=== PATIENT | female | born 1935 | race African-American/Black ===

== ENCOUNTER 2017-05-27 10:52 | Inpatient (IN) | payer MEDICAID, MEDICARE ==
[~2017-05-27] VITALS: Ht 167.6 cm; Wt 56.7 kg
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
--- NOTE | 2017-05-27 11:09 | NUR ---
REPORT GIVEN TO LUPILLO NASCIMENTO FOR BRADLEY
--- NOTE | 2017-05-27 11:23 | NUR ---
pt transferred to floor in stable condition
[2017-05-27 11:30] VITALS: BP 143/65
--- NOTE | 2017-05-27 11:30 | NUR ---
PARCEL POST CARRIER PATIENT RECEIVED FROM E.R. DEPT, A/OX1, CONFUSED, GARBLED SPEECH, BREATHING EVEN AND UNLABORED, NO SOB NOTED, SKIN ASSESSMENT COMPLETED, SKIN DRY AND INTACT, NO WOUNDS NOTED, BED BATH AND SKIN CARE PROVIDED, DR. BRAGG SEEN AND EXAMINED PATIENT, INSTRUCTED TO PUT O2 INHALATION. AWAITING FOR DR. BRAGG'S ADMISSION ORDERS. SAFETY MEASURES IN PLACED, CALL LIGHT WITHIN REACH, BED ALARM ON, WILL CONTINUE TO MONITOR.
[2017-05-27] MEDS ORDERED: ONDANSETRON HCL/PF 4 MG/2 ML VIAL IVP PRN (13:00)
[2017-05-27] MEDS ORDERED: Z GUARD REMEDY 2 OZ OINT TP PRN (13:00)
[2017-05-27] MEDS ORDERED: ZOLPIDEM TARTRATE 5 MG TABLET PO PRN (13:00)
[2017-05-27] MEDS ORDERED: ACETAMINOPHEN 325 MG TABLET PO PRN (13:00)
[2017-05-27] MEDS ORDERED: MAG HYDROX/AL HYDROX/SIMETH 30 ML UDC PO PRN (13:00)
[2017-05-27] MEDS ORDERED: MAGNESIUM HYDROXIDE 30 ML UDC PO PRN (13:00)
[2017-05-27] MEDS: IV NS 0.9% 1,000 ML IV PRN (15:41)
[2017-05-27 16:00] VITALS: BP 159/85
[2017-05-27] MEDS ORDERED: MAGN400O6 PO (17:24)
[2017-05-27] MEDS ORDERED: ASCO500T9 PO (17:24)
[2017-05-27] MEDS ORDERED: PANT40TA2 PO (17:24)
[2017-05-27] MEDS ORDERED: SENN-18 PO (17:24)
[2017-05-27] MEDS ORDERED: AMLO10TA2 PO (17:24)
[2017-05-27] MEDS ORDERED: HYDR-552 PO ×2 (17:24)
[2017-05-27] MEDS ORDERED: LATA2.5D7 EACHEYE (17:24)
[2017-05-27] MEDS ORDERED: DEXT1CAP3 PO (17:24)
[2017-05-27] MEDS ORDERED: LEVE100S PO (17:24)
[2017-05-27] MEDS ORDERED: INSU100V27 SQ (17:24)
[2017-05-27] MEDS ORDERED: HYDR100T27 PO (17:24)
[2017-05-27] MEDS ORDERED: INSU100V10 SQ (17:24)
[2017-05-27] MEDS ORDERED: ACET-868 PO (17:24)
[2017-05-27] MEDS ORDERED: FERR-58 PO (17:24)
[2017-05-27] MEDS ORDERED: CLON0.1T PO (17:24)
[2017-05-27] MEDS ORDERED: CARV25TA2 PO (17:24)
[2017-05-27] MEDS ORDERED: AMIN30LI2 PO (17:24)
[2017-05-27] MEDS ORDERED: DORZ10DR13 LEFTEYE (17:24)
[2017-05-27] MEDS ORDERED: MULT-213 PO (17:24)
[2017-05-27] MEDS ORDERED: LORA-259 PO (17:24)
[2017-05-27] MEDS ORDERED: CHOL200026 PO (17:24)
[2017-05-27] MEDS ORDERED: CLON0.3P TD (17:24)
[2017-05-27] MEDS ORDERED: DOCU-275 PO (17:24)
[2017-05-27] MEDS ORDERED: HYDROCODONE/APAP 5/325MG 1 EACH TABLET PO PRN (18:00)
[2017-05-27] MEDS: HYDROCODONE/APAP 5/325MG 1 EACH TABLET PO PRN (18:09)
--- NOTE | 2017-05-27 19:45 | NUR ---
RN OPENING NOTES RECEIVED REPORT FROM DAYSHIFT RN. FOUND Pt AWAKE, RESTING IN BED, FAMILY MEMBER VISITING AT BEDSIDE. NO S/S OF ACUTE DISTRESS OR SOB NOTED. RESPIRATIONS EVEN AND UNLABORED. EQUAL CHEST RISE AND FALL. Pt IS A/OX1, CONFUSED. ON [facility] SOFT DIET. IV ACCESS ON RWRIST #20G, IVF NS @75ML/HR. SAFETY MEASURES IN PLACE. BED LOW, LOCKED, HOB ELEVATED, SIDE RAILS UP, CALL LIGHT AND BEDSIDE TABLE WITHIN REACH. WILL CONTINUE TO MONITOR Pt THROUGHOUT THE NIGHT FOR SAFETY.
[2017-05-27 20:00] VITALS: BP 141/66
[2017-05-28] MEDS ORDERED: hydrALAZINE HCL 25 MG TABLET PO PRN (03:00)
[2017-05-28] MEDS: IV NS 0.9% 1,000 ML IV PRN (06:23)
--- NOTE | 2017-05-28 06:50 | NUR ---
RN CLOSING NOTES NO SIGNIFICANT CHANGES IN Pt's CONDITION. Pt REMAINS STABLE AT THIS TIME. NO S/S OF ACUTE DISTRESS OR SOB NOTED DURING THE NIGHT. ALL NEEDS MET AND ATTENDED TO. SAFETY MEASURES IN PLACE. WILL ENDORSE TO DAYSHIFT RN FOR Pt's BRADLEY.
--- NOTE | 2017-05-28 07:20 | NUR ---
RECEIVED REPORT AT THE BEDSIDE. PATIENT IS RESTING COMFORTABLY IN BED. NO SOB OR DISTRESS NOTED. PATIENT DENIES PAIN. BED IN A LOW POSITION, CALL LIGHT WITHIN PATIENT REACH. WILL CONTINUE TO MONITOR. Addendum: 05/28/17 at 0756 by DARLENE BELCHER RN PT NEEDS MED REC. WILL INFORM MD WHEN ABLE.
[2017-05-28 07:37] LABS: BASOPHILS % (AUTO) 0.7 % (0.0-2.0); EOSINOPHILS # (AUTO) 0.1 /CMM (0.0-0.7); EOSINOPHILS % (AUTO) 2.4 % (0.0-6.0); HEMATOCRIT 26 % (33-45); HEMOGLOBIN 8.3 g/dL (11.5-14.8); LYMPHOCYTES # (AUTO) 2.1 /CMM (0.8-4.8); LYMPHOCYTES % (AUTO) 44.4 % (20.0-44.0); MEAN CORPUSCULAR HEMOGLOBIN 29 PG (26.0-33.0); MEAN CORPUSCULAR HGB CONC 33 g/dl (31.0-36.0); MEAN CORPUSCULAR VOLUME 90 fL (82-100); MONOCYTES # (AUTO) 0.5 /CMM (0.1-1.30); MONOCYTES % (AUTO) 9.7 % (2.0-12.0); NEUTROPHILS # (AUTO) 2.1 /CMM (1.8-8.9); NEUTROPHILS % (AUTO) 42.8 % (43.0-81.0); PLATELET COUNT (AUTO) 202 /CMM (150-450); RDW COEFFICIENT OF VARIATION 13.9 (11.5-15.0); RED BLOOD CELL COUNT(AUTO) 2.84 MIL/uL (4.0-5.2); WHITE BLOOD COUNT (AUTO) 4.8 K/uL (4.3-11.0)
[2017-05-28 07:42] LABS: INR 0.98 (0.87-1.13); PROTHROMBIN TIME 10.2 SECS (9.5-12.7)
[2017-05-28 07:47] LABS: RETICULOCYTE COUNT 0.8 % (0.6-2.5)
[2017-05-28 07:54] LABS: ALANINE AMINOTRANSFERASE 39 U/L (12-78); ALBUMIN 2.5 g/dL (3.4-5.0); ALKALINE PHOSPHATASE 90 U/L (46-116); AMYLASE 136 U/L (25-115); ASPARTATE AMINOTRANSFERASE 23 U/L (15-37); BILIRUBIN,TOTAL 0.2 mg/dL (0.2-1.0); CALCIUM, SERUM 8.8 mg/dL (8.5-10.1); CARBON DIOXIDE 18 mmol/L (21-32); CHLORIDE 118 mmol/L (98-107); GLUCOSE 92 mg/dL (74-106); LIPASE 205 U/L (73-393); MAGNESIUM 2.2 mg/dL (1.8-2.4); PHOSPHORUS 3.6 mg/dL (2.5-4.9); POTASSIUM 4.7 mmol/L (3.5-5.1); SODIUM SERUM 147 mmol/L (136-145); TOTAL PROTEIN, SERUM 6.4 g/dL (6.4-8.2); UREA NITROGEN, BLOOD 36 mg/dL (7-18)
[2017-05-28 08:00] VITALS: BP 147/67
[2017-05-28 08:09] LABS: CHOLESTEROL 164 mg/dL (<200); CREATINE KINASE MB 0.4 ng/mL (0-3.6); HDL CHOLESTEROL 33 mg/dL (40-60); LDL 99 mg/dL (0-99); THYROID STIMULATING HORMONE 1.113 uIU/mL (0.358-3.74); TRIGLYCERIDES 119 mg/dL (30-150)
[2017-05-28] MEDS: ENOXAPARIN SODIUM 30 MG/0.3 ML DISP.SYRIN SQ SCH (08:15)
[2017-05-28 08:19] LABS: IRON, SERUM 60 ug/dl (50-175); TOTAL IRON BINDING CAPACITY 150 ug/dl (250-450)
[2017-05-28] MEDS ORDERED: HYDROCODONE/APAP 5/325MG 1 EACH TABLET PO SCH ×2 (11:30→12:00)
[2017-05-28] MEDS ORDERED: MAGNESIUM HYDROXIDE 30 ML UDC PO PRN (11:30)
[2017-05-28] MEDS ORDERED: ACETAMINOPHEN 325 MG TABLET PO PRN (11:30)
[2017-05-28] MEDS ORDERED: HOME MED MISCELLANEOUS XX SCH (11:30)
[2017-05-28] MEDS ORDERED: CLONIDINE HCL 0.1 MG TABLET PO PRN (11:30)
[2017-05-28] MEDS: BLOOD SUGAR DIAGNOSTIC 1 EACH STRIP IN SCH ×3 (12:26→21:15)
[2017-05-28] MEDS: hydrALAZINE HCL 50 MG TABLET PO SCH ×2 (12:26→17:43)
[2017-05-28] MEDS: IV 1/2NS 1000 ML 1,000 ML IV PRN (12:26)
[2017-05-28] MEDS: FERROUS SULFATE (325 MG) 325 MG/TAB TABLET PO SCH ×2 (12:26→17:43)
[2017-05-28] MEDS: INSULIN ASPART HUMALOG/NOVOLOG 100 UNIT/ML CARTRIDGE SQ PRN ×3 (12:30→21:17)
[2017-05-28 16:00] VITALS: BP 150/84
[2017-05-28] MEDS: PROSOURCE / PROSTAT (PYXIS) 30 ML UDC PO SCH (17:00)
[2017-05-28] MEDS: LORAZEPAM 1 MG TABLET PO SCH (17:43)
[2017-05-28] MEDS: DOCUSATE SODIUM 100 MG CAPSULE PO SCH (17:43)
[2017-05-28] MEDS: TIMOLOL MAL/DORZOLAM HCL OPHTH 10 ML BOTTLE LEFTEYE SCH (17:45)
[2017-05-28] MEDS: HYDROCODONE/APAP 5/325MG 1 EACH TABLET PO PRN (18:49)
[2017-05-28 20:00] VITALS: BP 167/89
[2017-05-28 20:17] LABS: APPEARANCE,URINE CLEAR (CLEAR); BILIRUBIN,URINE NEGATIVE (NEGATIVE); BLOOD, URINE NEGATIVE Ery/uL (NEGATIVE); COLOR,URINE YELLOW (YELLOW); KETONES,URINE NEGATIVE (NEGATIVE); LEUKOCYTE ESTERASE ,URINE TRACE (NEGATIVE); NITRITE, URINE NEGATIVE (NEGATIVE); PH,URINE 5.5 (5.0-8.0); PROTEIN,URINE 2+ mg/dl (NEGATIVE); UGLUCOSE NEGATIVE (NEGATIVE); UROBILINOGEN,URINE 0.2 EU/dL (0.2)
[2017-05-28] MEDS: SENNOSIDES 8.6 MG TABLET PO SCH (20:54)
[2017-05-28] MEDS: LEVETIRACETAM SOL (5 ML) 100 MG/ML UDC PO SCH (20:55)
[2017-05-28] MEDS: CARVEDILOL 12.5 MG TABLET PO SCH (20:55)
[2017-05-28 21:08] LABS: BACTERIA,URINE Many /HPF (None Seen); RBC,URINE 0-2 /HPF (0-2); SQUAMOUS EPITHELIAL CELL,UR Few /HPF (None Seen)
[2017-05-28] MEDS: INSULIN DETEMIR 100 UNIT/ML CARTRIDGE SQ SCH (21:16)
[2017-05-28] MEDS: LATANOPROST EYE DROP 0.005% 2.5 ML BOTTLE EACHEYE SCH (22:12)
[2017-05-29] MEDS: IV 1/2NS 1000 ML 1,000 ML IV PRN ×2 (00:25→13:17)
[2017-05-29] MEDS: HYDROCODONE/APAP 5/325MG 1 EACH TABLET PO PRN (05:02)
[2017-05-29] MEDS: DEXTROSE 50%-WATER 50 ML DISP.SYRIN IV PRN (05:45)
--- NOTE | 2017-05-29 06:28 | NUR ---
MS RN NOTES AWAKE & STILL CONFUSED. NOT IN ANY DISTRESS. NO SOB NOTED. DENIES ANY PAIN OR DISCOMFORT AT THIS TIME. WITH IVF INFUSING WELL. AM CARE DONE. MONITORED ACCORDINGLY. CALL LIGHT WITHIN REACH. BED IN LOWEST POSITION. SR UP X 3 FOR SAFETY WITH BED ALARM ON. WILL ENDORSE TO NEXT SHIFT.
[2017-05-29] MEDS: BLOOD SUGAR DIAGNOSTIC 1 EACH STRIP IN SCH ×4 (06:47→21:28)
[2017-05-29] MEDS: PANTOPRAZOLE 40 MG TABLET.DR PO SCH (07:53)
[2017-05-29 08:00] VITALS: BP 154/81
[2017-05-29] MEDS: MULTIVIT, IRON, MIN NO. 8, FA 1 TAB PO SCH (08:31)
[2017-05-29] MEDS: LEVETIRACETAM SOL (5 ML) 100 MG/ML UDC PO SCH ×3 (08:31→21:06)
[2017-05-29] MEDS: DOCUSATE SODIUM 100 MG CAPSULE PO SCH ×2 (08:31→16:32)
[2017-05-29] MEDS: ASCORBIC ACID 500 MG TABLET PO SCH (08:31)
[2017-05-29] MEDS: FERROUS SULFATE (325 MG) 325 MG/TAB TABLET PO SCH ×3 (08:31→16:32)
[2017-05-29] MEDS: CHOLECALCIFEROL 1,000 UNIT TABLET (VIT D3) PO SCH (08:31)
[2017-05-29] MEDS: hydrALAZINE HCL 50 MG TABLET PO SCH ×3 (08:32→16:32)
[2017-05-29] MEDS: CARVEDILOL 12.5 MG TABLET PO SCH ×3 (08:32→21:07)
[2017-05-29] MEDS: AMLODIPINE BESYLATE 10 MG TABLET PO SCH (08:33)
[2017-05-29] MEDS: TIMOLOL MAL/DORZOLAM HCL OPHTH 10 ML BOTTLE LEFTEYE SCH ×2 (08:34→16:33)
[2017-05-29] MEDS: ENOXAPARIN SODIUM 30 MG/0.3 ML DISP.SYRIN SQ SCH (08:36)
[2017-05-29] MEDS: SENNOSIDES 8.6 MG TABLET PO SCH ×3 (08:37→21:06)
[2017-05-29] MEDS: PROSOURCE / PROSTAT (PYXIS) 30 ML UDC PO SCH ×2 (08:38→16:32)
[2017-05-29] MEDS: LORAZEPAM 1 MG TABLET PO SCH ×2 (08:38→16:32)
[2017-05-29] MEDS ORDERED: CLONIDINE HCL 0.3 MG/24H PTWK 1 EA PATCH TD SCH (09:00)
[2017-05-29] MEDS: LEVOFLOXACIN (250MG) 250 MG TABLET PO SCH (10:27)
[2017-05-29 12:04] LABS: BASOPHILS % (AUTO) 0.3 % (0.0-2.0); EOSINOPHILS # (AUTO) 0.1 /CMM (0.0-0.7); HEMATOCRIT 31 % (33-45); HEMOGLOBIN 9.8 g/dL (11.5-14.8); LYMPHOCYTES # (AUTO) 1.8 /CMM (0.8-4.8); LYMPHOCYTES % (AUTO) 24.2 % (20.0-44.0); MEAN CORPUSCULAR HEMOGLOBIN 29 PG (26.0-33.0); MEAN CORPUSCULAR HGB CONC 32 g/dl (31.0-36.0); MEAN CORPUSCULAR VOLUME 90 fL (82-100); MONOCYTES # (AUTO) 0.3 /CMM (0.1-1.30); MONOCYTES % (AUTO) 3.9 % (2.0-12.0); NEUTROPHILS # (AUTO) 5.1 /CMM (1.8-8.9); NEUTROPHILS % (AUTO) 69.6 % (43.0-81.0); PLATELET COUNT (AUTO) 222 /CMM (150-450); RED BLOOD CELL COUNT(AUTO) 3.41 MIL/uL (4.0-5.2); WHITE BLOOD COUNT (AUTO) 7.3 K/uL (4.3-11.0)
[2017-05-29 12:14] LABS: CALCIUM, SERUM 8.7 mg/dL (8.5-10.1); CARBON DIOXIDE 20 mmol/L (21-32); CHLORIDE 108 mmol/L (98-107); CREATININE 1.6 mg/dL (0.6-1.3); GLUCOSE 150 mg/dL (74-106); POTASSIUM 4.3 mmol/L (3.5-5.1); SODIUM SERUM 138 mmol/L (136-145); UREA NITROGEN, BLOOD 26 mg/dL (7-18)
[2017-05-29] MEDS: INSULIN ASPART HUMALOG/NOVOLOG 100 UNIT/ML CARTRIDGE SQ PRN ×3 (13:02→21:29)
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
[2017-05-29 20:00] VITALS: BP 129/62
[2017-05-29] MEDS: LATANOPROST EYE DROP 0.005% 2.5 ML BOTTLE EACHEYE SCH (21:30)
[2017-05-29] MEDS: INSULIN DETEMIR 100 UNIT/ML CARTRIDGE SQ SCH (21:30)
[2017-05-30] MEDS: IV 1/2NS 1000 ML 1,000 ML IV PRN ×2 (01:56→15:44)
[2017-05-30] MEDS: BLOOD SUGAR DIAGNOSTIC 1 EACH STRIP IN SCH ×4 (06:12→21:49)
--- NOTE | 2017-05-30 07:30 | NUR ---
MS/RN Patient received Patient received from shift production supervisor Appears in no distress or discomfort at this time. Call ligth within reach, will continue to monitor and ensure safety.
[2017-05-30 08:00] VITALS: BP 126/61
[2017-05-30] MEDS: PANTOPRAZOLE 40 MG TABLET.DR PO SCH (08:12)
[2017-05-30] MEDS: FERROUS SULFATE (325 MG) 325 MG/TAB TABLET PO SCH ×3 (08:13→17:31)
[2017-05-30] MEDS: TIMOLOL MAL/DORZOLAM HCL OPHTH 10 ML BOTTLE LEFTEYE SCH ×2 (08:13→17:31)
[2017-05-30] MEDS: SENNOSIDES 8.6 MG TABLET PO SCH ×2 (08:13→21:41)
[2017-05-30] MEDS: LEVOFLOXACIN (250MG) 250 MG TABLET PO SCH (08:13)
[2017-05-30] MEDS: DOCUSATE SODIUM 100 MG CAPSULE PO SCH ×2 (08:13→17:30)
[2017-05-30] MEDS: MULTIVIT, IRON, MIN NO. 8, FA 1 TAB PO SCH (08:13)
[2017-05-30] MEDS: ASCORBIC ACID 500 MG TABLET PO SCH (08:13)
[2017-05-30] MEDS: CHOLECALCIFEROL 1,000 UNIT TABLET (VIT D3) PO SCH (08:14)
[2017-05-30] MEDS: LORAZEPAM 1 MG TABLET PO SCH ×2 (08:14→17:31)
[2017-05-30] MEDS: LEVETIRACETAM SOL (5 ML) 100 MG/ML UDC PO SCH ×2 (08:14→21:41)
[2017-05-30] MEDS: hydrALAZINE HCL 50 MG TABLET PO SCH ×3 (08:18→17:31)
[2017-05-30] MEDS: AMLODIPINE BESYLATE 10 MG TABLET PO SCH (08:18)
[2017-05-30] MEDS: CARVEDILOL 12.5 MG TABLET PO SCH ×2 (08:18→21:42)
[2017-05-30] MEDS: ENOXAPARIN SODIUM 30 MG/0.3 ML DISP.SYRIN SQ SCH (08:19)
[2017-05-30] MEDS: PROSOURCE / PROSTAT (PYXIS) 30 ML UDC PO SCH ×2 (08:23→17:33)
--- NOTE | 2017-05-30 09:32 | NUR ---
MS/RN Medications Morning medications administered, crushed with apple sauce.
--- NOTE | 2017-05-30 15:11 | NUR ---
MS/RN S/B Dr Dewey Seen by Dr Dewey - awaiting SNF to reopen. Continue with current plan of care.
[2017-05-30 16:00] VITALS: BP 151/97
--- NOTE | 2017-05-30 18:00 | NUR ---
MS/RN Blood sugar Blood sugar at 5p - 122, no coverage needed.
--- NOTE | 2017-05-30 19:23 | NUR ---
RN NOTES IN BED RESTING COMFORTABLY. A/O X 1, PT IN STABLE CONDITION, NO S/S OF DISTRESS. SAFETY MEASURES ARE IN PLACE, CALL LIGHT IS IN REACH. WILL CONTINUE TO MONITOR.
[2017-05-30 20:00] VITALS: BP 140/67
[2017-05-30] MEDS: LATANOPROST EYE DROP 0.005% 2.5 ML BOTTLE EACHEYE SCH (21:41)
[2017-05-30] MEDS: INSULIN DETEMIR 100 UNIT/ML CARTRIDGE SQ SCH (21:49)
[2017-05-30] MEDS: INSULIN ASPART HUMALOG/NOVOLOG 100 UNIT/ML CARTRIDGE SQ PRN (21:50)
--- NOTE | 2017-05-30 22:00 | NUR ---
MS RN NOTES LEVIMIR 18 UNITS DUE AT 2200 REFUSED BY THE PATIENT DESPITE EXPLAINING RISKS AND BENEFITS OFFERED 3 TIMES SHOUTING AND SAID NO, M.D MADE AWARE
[2017-05-31] MEDS: IV 1/2NS 1000 ML 1,000 ML IV PRN ×2 (00:12→15:16)
[2017-05-31] MEDS: BLOOD SUGAR DIAGNOSTIC 1 EACH STRIP IN SCH ×4 (05:52→21:01)
[2017-05-31] MEDS: INSULIN ASPART HUMALOG/NOVOLOG 100 UNIT/ML CARTRIDGE SQ PRN ×4 (05:52→21:07)
--- NOTE | 2017-05-31 06:36 | NUR ---
MS RN CLOSING NOTES ASLEEP AND EASILY AWAKEN, HOB ELEVATED, RESPIRATIONS EVEN AND UNLABORED. 98% R.A IN STABLE CONDITION. NOT IN S/S DISTRESS. KEPT CLEAN AND DRY AND COMFORTABLE, ALL NURSING CARE RENDERED. NEEDS ATTENDED AND ANTICIPATED, FREQUENT VISUAL CHECK DONE FOR SAFETY EVERY 2 HOURS. ASSISTED REPOSITION Q2H. ON LOW BED AT ALL TIMES TO ENSURE SAFETY. SAFE HAZARD FREE ENVIRONMENT PROVIDED. CALL LIGHT WITHIN EASY TO REACH. WILL ENDORSE NEXT SHIFT CONTINUITY OF CARE.
--- NOTE | 2017-05-31 07:30 | NUR ---
MS RN NOTES RECEIVED PATIENT IN BED, AWAKE. A/O X1 WITH CONFUSION, SPEECH GARBLED. IVC IN RFA, IVF 1/2 NS INFUSING AT 80ML/HR, TOLERATING WELL. MADE COMFORTABLE IN BED, SAFETY MEASURES PROVIDED. CALL LIGHT WITHIN REACH, SIDE RAILS UP X2. WILL CONT TO MONITOR.
[2017-05-31 08:00] VITALS: BP 158/77
[2017-05-31] MEDS: LEVETIRACETAM SOL (5 ML) 100 MG/ML UDC PO SCH ×2 (09:19→20:38)
[2017-05-31] MEDS: CHOLECALCIFEROL 1,000 UNIT TABLET (VIT D3) PO SCH (09:20)
[2017-05-31] MEDS: DOCUSATE SODIUM 100 MG CAPSULE PO SCH ×2 (09:20→16:10)
[2017-05-31] MEDS: ASCORBIC ACID 500 MG TABLET PO SCH (09:20)
[2017-05-31] MEDS: FERROUS SULFATE (325 MG) 325 MG/TAB TABLET PO SCH ×3 (09:20→16:10)
[2017-05-31] MEDS: LEVOFLOXACIN (250MG) 250 MG TABLET PO SCH (09:20)
[2017-05-31] MEDS: CARVEDILOL 12.5 MG TABLET PO SCH ×2 (09:20→20:38)
[2017-05-31] MEDS: LORAZEPAM 1 MG TABLET PO SCH ×2 (09:20→16:10)
[2017-05-31] MEDS: TIMOLOL MAL/DORZOLAM HCL OPHTH 10 ML BOTTLE LEFTEYE SCH ×2 (09:21→16:12)
[2017-05-31] MEDS: SENNOSIDES 8.6 MG TABLET PO SCH ×2 (09:23→20:38)
[2017-05-31] MEDS: AMLODIPINE BESYLATE 10 MG TABLET PO SCH (09:23)
[2017-05-31] MEDS: MULTIVIT, IRON, MIN NO. 8, FA 1 TAB PO SCH (09:23)
[2017-05-31] MEDS: PANTOPRAZOLE 40 MG TABLET.DR PO SCH (09:30)
[2017-05-31] MEDS: ENOXAPARIN SODIUM 30 MG/0.3 ML DISP.SYRIN SQ SCH (09:30)
[2017-05-31] MEDS: hydrALAZINE HCL 50 MG TABLET PO SCH ×3 (09:34→16:12)
[2017-05-31] MEDS: PROSOURCE / PROSTAT (PYXIS) 30 ML UDC PO SCH ×2 (09:45→16:09)
[2017-05-31] MEDS: HYDROCODONE/APAP 5/325MG 1 EACH TABLET PO PRN (12:48)
[2017-05-31 16:00] VITALS: BP 132/74
--- NOTE | 2017-05-31 18:35 | NUR ---
MS RN CLOSING NOTES PATIENT IS A/O X1. BLOOD SUGAR MONITORED, ASSISTED WITH FEEDING. REPOSITION Q 2HR WHILE IN BED. MADE COMFORTABLE IN BED, DENIES ANY DISCOMFORT. PLACE CALL LIGHT WITHIN REACH. FOR DC PLANNING, CM IS AWARE. WILL ENDORSE TO DRIER FEEDER RN FOR BRADLEY.
--- NOTE | 2017-05-31 19:30 | NUR ---
MS RN OPENING NOTES: PATIENT IN BED, AOX1, ON ROOM AIR, BREATHING EVEN AND UNLABORED. DOES NOT RESPOND COHERENTLY TO QUESTIONS, WITH GARBLED SPEECH ONLY, BUT APPEARS CALM AND IN NO DISTRESS. PIV OVER RFA G 20 INTACT AND INFUSING WELL WITH 1/2 NS RUNNING AT 80 ML/HR. PROVIDED FOR COMFORT AND SAFETY. BED IN LOWEST AND LOCKED POSITION, SIDERAILS UP X 3, BED ALARMS ON. WILL CONT TO MONITOR.
[2017-05-31 20:00] VITALS: BP 129/69
[2017-05-31] MEDS: LATANOPROST EYE DROP 0.005% 2.5 ML BOTTLE EACHEYE SCH (21:01)
[2017-05-31] MEDS: INSULIN DETEMIR 100 UNIT/ML CARTRIDGE SQ SCH ×2 (21:10→21:15)
--- NOTE | 2017-05-31 21:20 | NUR ---
RN NOTES: PATIENT'S BLOOD SUGAR CHECKED AT 135 MG/ DL. ADMINISTERED 2 UNITS REGULAR INSULIN PER SS AND LEVEMIR 18 UNITS SQ. GAVE SNACK TO PATIENT, ASSISTED WITH FEEDING. WILL CONT TO MONITOR.
[2017-06-01] MEDS: IV 1/2NS 1000 ML 1,000 ML IV PRN (04:22)
--- NOTE | 2017-06-01 06:35 | NUR ---
RN NOTES: PATIENT'S BLOOD SUGAR CHECKED AT 35MG/DL, REPEATED AT 35 MG/DL. PIV LINE LEAKED WHEN D50 WAS STARTED TO BE GIVEN. ATTEMPTED TO REINSERT NEW IV LINE. OJ GIVEN IN MEANTIME. PATIENT IS BASELINE LOC, CONFUSED, SCREAMING COMBATIVE, BUT ABLE TO DRINK OJ.
[2017-06-01] MEDS: BLOOD SUGAR DIAGNOSTIC 1 EACH STRIP IN SCH ×4 (06:39→22:46)
[2017-06-01] MEDS: DEXTROSE 50%-WATER 50 ML DISP.SYRIN IV PRN ×2 (06:40→21:39)
--- NOTE | 2017-06-01 07:09 | NUR ---
RN NOTES: NEW IV LINE REINSERTED BY AZAM BOWLES FROM ER, AT LFA G22. ADMINISTERED D50 1 AMP IV. COREY RECHECK BLOOD SUGAR AFTER 30 MINS.
--- NOTE | 2017-06-01 07:47 | NUR ---
RN NOTES: PATIENT'S BLOOD SUGAR RECHECKED AT 187 MG/DL.
--- NOTE | 2017-06-01 07:51 | NUR ---
MS RN CLOSING NOTES: PATIENT IN BED, ASLEEP AT THIS TIME, BUT EASILY AWAKENED TO NAME BEING CALLED. ON ROOM AIR, BREATHING EVEN AND UNLABORED. APPEARS CALM AND IN NO DISTRESS. PIV OVER LFA G 22 INTACT AND INFUSING WELL WITH 1/2 NS RUNNING AT 80 ML/HR. BLOOD SUGAR RECHECKED AT 187MG/DL. WILL INFORM MD. PROVIDED FOR COMFORT AND SAFETY. MORNING CARE RENDERED. BED IN LOWEST AND LOCKED POSITION, SIDERAILS UP X3. WILL ENDORSE TO AM RN FOR BRADLEY.
--- NOTE | 2017-06-01 07:52 | NUR ---
RN NOTES: SPOKE TO DR WHITLEY, PATIENT IS NO LONGER UNDER HIS CARE, TRANSFERRED CARE TO DR BRAGG. ATTEMPTED TO CALL DR BRAGG.
[2017-06-01 08:00] VITALS: BP 140/78
--- NOTE | 2017-06-01 08:18 | NUR ---
MS RN OPENING NOTES: RECEIVED PATIENT RESTING IN BED, A/0 X1, CONFUSED, GARBLED SPEECH, ON ROOM AIR, RESPIRATIONS EVEN AND UNLABORED. BECOMES AGITATED WHEN GIVEN CARE. IV STARTED THIS MORNING D/T DISLODGEMENT, AND GIVEN DEXTROSE 50% IV PUSH. NEW IV STARTED TO LFA G 22 INTACT AND INFUSING WELL WITH 1/2 NS RUNNING AT 80 ML/HR. RECHECKED BS 187MG/DL. SAFETY MEASURES RENDERED, BED IN LOWEST AND LOCKED POSITION, SIDERAILS UP X3. WILL CONTINUE TO MONITOR.
--- NOTE | 2017-06-01 08:24 | NUR ---
CALLED DR BRAGG, RELAYED INITIAL AM BS OF 35 MG/DL, THEN RECHECKED BS AT 187 MG/DL. PER , ORDER FOR RANDOM BLOOD SUGAR WITH LAB.
[2017-06-01] MEDS: PROSOURCE / PROSTAT (PYXIS) 30 ML UDC PO SCH ×2 (09:00→16:25)
[2017-06-01] MEDS: ENOXAPARIN SODIUM 30 MG/0.3 ML DISP.SYRIN SQ SCH (09:43)
[2017-06-01] MEDS: TIMOLOL MAL/DORZOLAM HCL OPHTH 10 ML BOTTLE LEFTEYE SCH ×2 (09:43→16:24)
[2017-06-01] MEDS: ASCORBIC ACID 500 MG TABLET PO SCH (09:43)
[2017-06-01] MEDS: DOCUSATE SODIUM 100 MG CAPSULE PO SCH ×2 (09:43→16:12)
[2017-06-01] MEDS: MULTIVIT, IRON, MIN NO. 8, FA 1 TAB PO SCH (09:44)
[2017-06-01] MEDS: hydrALAZINE HCL 50 MG TABLET PO SCH ×3 (09:44→16:24)
[2017-06-01] MEDS: CHOLECALCIFEROL 1,000 UNIT TABLET (VIT D3) PO SCH (09:44)
[2017-06-01] MEDS: AMLODIPINE BESYLATE 10 MG TABLET PO SCH (09:44)
[2017-06-01] MEDS: LEVOFLOXACIN (250MG) 250 MG TABLET PO SCH (09:44)
[2017-06-01] MEDS: SENNOSIDES 8.6 MG TABLET PO SCH ×2 (09:44→21:25)
[2017-06-01] MEDS: LEVETIRACETAM SOL (5 ML) 100 MG/ML UDC PO SCH ×2 (09:44→21:25)
[2017-06-01] MEDS: LORAZEPAM 1 MG TABLET PO SCH ×2 (09:44→16:24)
[2017-06-01] MEDS: FERROUS SULFATE (325 MG) 325 MG/TAB TABLET PO SCH ×3 (09:44→16:12)
[2017-06-01] MEDS: CARVEDILOL 12.5 MG TABLET PO SCH ×2 (09:45→21:25)
[2017-06-01] MEDS: PANTOPRAZOLE 40 MG TABLET.DR PO SCH (09:45)
--- NOTE | 2017-06-01 10:02 | NUR ---
MS/RN NOTES MEDICATIONS CRUSHED AND ADMINISTERED VIA APPLE SAUCE HOWEVER PATIENT REFUSED TO TAKE AFTER TWO TABLE SPOON. WILL ATTEMPT AT ANOTHER TIME
[2017-06-01] MEDS: INSULIN ASPART HUMALOG/NOVOLOG 100 UNIT/ML CARTRIDGE SQ PRN (12:43)
--- NOTE | 2017-06-01 15:52 | NUR ---
MS/RN NOTES PATIENTS SON AT BEDSIDE. DISCUSSED AND PROVIDED WITH DISCHARGE SUMMARY WHERE VERBALIZED UNDERSTANDING OF INSTRUCTIONS GIVEN
[2017-06-01 16:00] VITALS: BP 140/62
--- NOTE | 2017-06-01 17:55 | NUR ---
MS/RN NOTES 1700 FINGERSTICK 68MG/DL. PATIENT GIVEN 2 SPOONS OF PUDDING HOWEVER REFUSES TO EAT AND TAKE MEDICATIONS CRUSHED VIA APPLE SAUCE. PATIENT NON COOPERATIVE AND COMBATIVE WHEN GIVEN CARE, MOSTLY WANTS TO SLEEP AND NOT BE BOTHERED. BECOMES EASILY AGITATED AND SCREAMS WHEN TRYING TO GIVE MEDICATIONS/ CHECK BLOOD SUGAR. SON AT BEDSIDE HELPING WITH PATIENT CARE.
--- NOTE | 2017-06-01 18:49 | NUR ---
MS/RN CLOSING NOTES PATIENT RESTING IN BED, SON AT BEDSIDE, NO S/S OF DISTRESS OR DISCOMFORT NOTED. ALL DUE MEDICATIONS GIVEN TOLERATED, ALL NEEDS MET AND ATTENDED, PATIENT KEPT CLEAN AND DRY, SKIN CARE PERFORMED REPOSITIONED EVERY 2 HOURS. IV FLUIDS INFUSING WELL, IV INTACT AND PATENT. SAFETY PRECAUTIONS RENDERED, BED LOCKED IN LOWEST POSITION, SIDE RAILS UP X2, CALL LIGHT PLACED WITHIN REACH. WILL ENDORSE CARE TO LAND LEASING EXAMINER FOR BRADLEY
--- NOTE | 2017-06-01 19:30 | NUR ---
RN NOTES RECEIVED PATIENT IN BED AWAKE; CONFUSED; CALM AT THIS TIME. NO ACUTE DISTRESS NOTED. NO SIGNS OF PAIN NOTED. NO SYMPTOMS OF HYPER/HYPOGLYCEMIA. IV SITE PATENT, INTACT; IVF INFUSING ORDERED. ON LOW BED WITH BILATERAL UPPER SIDE RAILS UP. CALL BUTTON WITHIN EASY REACH. SON AT BEDSIDE. WILL CONTINUE TO MONITOR.
[2017-06-01 20:00] VITALS: BP 123/61
[2017-06-01 21:07] VITALS: BP 123/61
[2017-06-01 21:25] VITALS: BP 123/61
[2017-06-01] MEDS: LATANOPROST EYE DROP 0.005% 2.5 ML BOTTLE EACHEYE SCH (21:28)
[2017-06-01] MEDS: INSULIN DETEMIR 100 UNIT/ML CARTRIDGE SQ SCH (22:00)
--- NOTE | 2017-06-01 22:08 | NUR ---
RN NOTES BS 58. LEVEMIR HELD. DEXTROSE IV GIVEN. WILL CONTINUE TO MONITOR.
--- NOTE | 2017-06-01 23:46 | NUR ---
RN NOTES PATIENT PICKED UP BY [facility] FOR RETURN TO [facility]. VERBAL REPORT, DISCHARGE PAPERS, BELONGINGS GIVEN TO [facility] STAFF. PATIENT IN STABLE CONDITION; NO SIGNS OF PAIN NOTED. SON WILL ACCOMPANY PATIENT TO [facility].
== END 2017-06-01 23:46 | DRG 469 ==
LOC: ER 10:52 → MEDSG2 11:36
PROVIDERS: ADMIT Internal Medicine; ATTEND Internal Medicine
DX: N17.0 Acute kidney failure with tubular necrosis (principal); E87.0 Hyperosmolality and hypernatremia; E11.22 Type 2 diabetes mellitus with diabetic chronic kidney disease; F03.90 Unspecified dementia, unspecified severity, without behavioral disturbance, psychotic disturbance, mood disturbance, and anxiety; E86.0 Dehydration; G40.909 Epilepsy, unspecified, not intractable, without status epilepticus; I12.9 Hypertensive chronic kidney disease with stage 1 through stage 4 chronic kidney disease, or unspecified chronic kidney disease; N18.9 Chronic kidney disease, unspecified; N39.0 Urinary tract infection, site not specified; Z87.440 Personal history of urinary (tract) infections; H40.9 Unspecified glaucoma; B96.89 Other specified bacterial agents as the cause of diseases classified elsewhere; Z79.4 Long term (current) use of insulin
CPT/HCPCS: 36415; 71010-TC; 80048-TC; 80053-TC; 80061-TC; 80076-TC; 81000-TC; 82150-TC; 82553-TC; 82728-TC; 82746; 82945-TC; 82962-TC; 83540-TC; 83690-TC; 83735-TC; 84100-TC; 84443-TC; 85025-TC; 85045-TC; 85652-TC; 85730-TC; 87040-TC; 87081-TC; 87086-TC; 87186-TC; 93307-TC; A4606; J1650; J1815; J1953; J3490; J7030; Z7610